=== PATIENT | female | born 2000 | race Caucasian/White ===

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

== ENCOUNTER → 2024-03-17 | Outpatient (CLI) | payer BC ==
[2024-03-17 15:15] LABS: HEMATOCRIT 37.7 % (36.0-47.0); HEMOGLOBIN 12.9 g/dl (12.0-15.5); MEAN CORPUSCULAR HEMOGLOBIN 32.5 pg (27.0-33.0); MEAN CORPUSCULAR HGB CONC 34.2 g/dl (32.0-36.5); PLATELET COUNT, AUTOMATED 236 10^3/uL (150-450); RED BLOOD COUNT 3.97 10^6/uL (4.00-5.40); WHITE BLOOD COUNT 8.1 10^3/uL (4.0-10.0)
[2024-03-17 15:25] LABS: ERYTHROCYTE SEDIMENTATION RATE 29 mm/hr (0-20)
[2024-03-17 15:34] LABS: URIC ACID 3.3 MG/DL (3.1-7.8)
[2024-03-17 15:37] LABS: IMMUNOGLOBULIN A 138.1 MG/DL (40-350); IMMUNOGLOBULIN G 995 MG/DL (650-1600); RHEUMATOID FACTOR QUANT 6.8 IU/ML (<14)
[2024-03-17 15:40] LABS: IMMUNOGLOBULIN E 783.6 IU/ML (0-378)
== END ==
LOC: M PLALAB 12:11
PROVIDERS: ATTEND Internal Medicine Infectious Disease
DX: M25.50 Pain in unspecified joint (principal)

== ENCOUNTER → 2024-03-17 | Outpatient (REF) | payer BC | LOC: M SFHCPLAZ 11:57 | PROVIDERS: ATTEND Internal Medicine Infectious Disease | DX: M25.50 Pain in unspecified joint (principal); B99.9 Unspecified infectious disease; Z86.11 Personal history of tuberculosis ==

== ENCOUNTER → 2024-07-09 | Outpatient (CLI) | payer BC ==
[2024-07-09 15:11] LABS: BASO % 0.3 % (0.0-1.0); EOS # 0.1 10^3/uL (0.0-0.5); EOS % 1.2 % (0.0-3.0); HEMATOCRIT 39.6 % (36.0-47.0); HEMOGLOBIN 13.3 g/dl (12.0-15.5); LYMPH # 2.3 10^3/uL (1.5-5.0); LYMPH % 34.4 % (24.0-44.0); MEAN CORPUSCULAR HEMOGLOBIN 31.7 pg (27.0-33.0); MEAN CORPUSCULAR HGB CONC 33.6 g/dl (32.0-36.5); MEAN CORPUSCULAR VOLUME 94.3 fl (80.0-96.0); MONO # 0.5 10^3/uL (0.0-0.8); MONO % 7.4 % (2.0-8.0); NEUTROPHILS # 3.7 10^3/uL (1.5-8.5); NEUTROPHILS % 56.4 % (36.0-66.0); PLATELET COUNT, AUTOMATED 257 10^3/uL (150-450); WHITE BLOOD COUNT 6.6 10^3/uL (4.0-10.0)
[2024-07-09 15:14] LABS: C REACTIVE PROTEIN QUANTITATIV < 0.50 MG/DL (<1.0)
[2024-07-09 15:16] LABS: IMMUNOGLOBULIN E 341.3 IU/ML (0-378)
[2024-07-09 15:25] LABS: ERYTHROCYTE SEDIMENTATION RATE 4 mm/hr (0-20)
== END ==
LOC: M PLALAB 13:16
PROVIDERS: ATTEND Internal Medicine Infectious Disease
DX: M25.50 Pain in unspecified joint (principal); R76.8 Other specified abnormal immunological findings in serum

== ENCOUNTER 2025-03-16 18:51 | Emergency (ER) | payer BC ==
[~2025-03-16] VITALS: Ht 170.2 cm; Wt 70.9 kg
[2025-03-16 22:50] VITALS: BP 139/102; TEMP 97.8; O2SAT 98
== END 2025-03-17 00:58 | disposition left against medical advice (07) ==
LOC: M ED 18:51
DX: Z53.21 Procedure and treatment not carried out due to patient leaving prior to being seen by health care provider (principal)

== ENCOUNTER → 2025-04-19 | Outpatient (CLI) | payer BC ==
[2025-04-19 10:36] LABS: BASO # 0.0 10^3/uL (0.0-0.2); BASO % 0.3 % (0.0-1.0); EOS # 0.2 10^3/uL (0.0-0.5); EOS % 3.4 % (0.0-3.0); LYMPH # 2.0 10^3/uL (1.5-5.0); LYMPH % 31.5 % (24.0-44.0); MONO # 0.4 10^3/uL (0.0-0.8); MONO % 5.9 % (2.0-8.0); NEUTROPHILS # 3.8 10^3/uL (1.5-8.5); NEUTROPHILS % 58.7 % (36.0-66.0); PLATELET COUNT, AUTOMATED 239 10^3/uL (150-450)
[2025-04-19 11:08] LABS: ALT/SGPT 22 U/L (7.0-40); AST/SGOT 19 U/L (<34); C REACTIVE PROTEIN QUANTITATIV < 0.50 MG/DL (<1.0); CALCIUM LEVEL 9.2 MG/DL (8.5-10.1); CARBON DIOXIDE LEVEL 28 MMOL/L (20-31); CHLORIDE LEVEL 101 MMOL/L (98-107); CREATININE FOR GFR 0.65 MG/DL (0.55-1.30); GLOMERULAR FILTRATION RATE > 90.0 (>60); POTASSIUM SERUM 3.6 MMOL/L (3.5-5.1); SODIUM LEVEL 139 MMOL/L (136-145)
[2025-04-19 11:12] LABS: IMMUNOGLOBULIN E 284.9 IU/ML (0-378); VITAMIN B12 LEVEL 320 PG/ML (211-911)
== END ==
LOC: M PLALAB 08:08
PROVIDERS: ATTEND Internal Medicine Infectious Disease
DX: R51.9 Headache, unspecified (principal); R29.898 Other symptoms and signs involving the musculoskeletal system; Z86.19 Personal history of other infectious and parasitic diseases; Z91.014 Allergy to mammalian meats